=== PATIENT | male | born 1950 | race Caucasian/White ===

== ENCOUNTER 2018-04-11 06:14 | Day surgery (SDC) | payer OTHER, MEDICARE ==
--- NOTE | 2018-04-08 15:06 | RAD REPORT ---
EXAM DESCRIPTION: RAD - Chest Pa And Lat (2 Views) - 04/08/2018 3:00 pm CLINICAL HISTORY: preop Chest pain. COMPARISON: No comparisons FINDINGS: The lungs are emphysematous but clear. The heart is upper limit of normal in size. No disp laced fractures. IMPRESSION: No acute or concerning finding suspected.
[2018-04-08 15:39] LABS: Absolute Monocytes 0.6 K/uL (0.1-1.3); Absolute Neutrophil 4.3 K/uL (1.8-8.0); Basophils % 0.6 % (0-1.3); Eosinophils % 3.7 % (0-4.4); Hematocrit 40.8 % (39.6-49.0); Lymphocytes % 27.2 % (15.3-44.8); MCH 31.8 pg (27.0-35.0); MCV 92.4 fL (80-100); MPV 8.7 fL (7.6-11.3); Monocytes % 8.1 % (3.3-12.3); RBC Red Blood Cell Count 4.42 M/uL (4.33-5.43)
[2018-04-08 15:42] LABS: Protime INR 0.87
[2018-04-08 15:48] LABS: Potassium 4.3 mmol/L (3.5-5.1)
--- OUTSIDE RECORDS SUMMARY | 2018-04-11 06:16 | XMS REPORT ---
:1950 Author Organization [employer] Care Team Providers Name Role Phone Tariq Mooney Provider Role Unavailable Allergies No Known Allergies Problems No Known Problems Medications No Known Medications Results No Known Results Summary Purpose eClinicalWorks Submission
--- OUTSIDE RECORDS SUMMARY | 2018-04-11 06:16 | XMS REPORT ---
:1950 Author Organization [employer] Care Team Providers Name Role Phone Vinicio Tariq Provider Role Unavailable Allergies No Known Allergies Problems No Known Problems Medications Medication Code System Code Instructions Start End Date Status Dosage Date Machelle [facility] 44706068531 4 MG Orally Every Apr 08, Active 1 tablet 6-8 hrs 2018 as needed Results No Known Results Summary Purpose eClinicalWorks Submission
--- OUTSIDE RECORDS SUMMARY | 2018-04-11 06:16 | XMS REPORT ---
:1950 Author Organization [employer] Care Team Providers Name Role Phone Tariq Mooney Provider Role Unavailable Allergies, Adverse Reactions, Alerts Substance Reaction Event Type N.K.D.A. Info Not Available Non Drug Allergy Problems Problem Type Condition Code Onset Dates Condition Status Assessment Pain, joint, knee, left M25.562 Active Assessment Acute medial meniscal injury of S83.8X2A Active left knee, initial encounter Medications Medication Code Code Instructions Start End Status Dosage System Date Date Metformin HCl [facility] 23692710040 1000 MG Orally Active 1 tablet Once a day with a meal [facility] 59009842242 81 MG Orally Mar 04, Active 1 tablet Once a day 2017 atorvastatin [facility] 35726843531 20mg Active 1 tablet by mouth at bedtime Zetia [facility] 93381658944 10 MG Orally Active 1 tablet Once a day Prilosec [facility] 85282081674 20 MG Orally Active 1 capsule Once a day Results Name Result Date Reference Range Unit Abnormality Flag MRI KNEE WO CONTRAST Summary Purpose eClinicalWorks Submission
--- OUTSIDE RECORDS SUMMARY | 2018-04-11 06:16 | XMS REPORT ---
:1950 Author Organization [employer] Care Team Providers Name Role Phone Tariq Mooney Provider Role Unavailable Allergies No Known Allergies Problems No Known Problems Medications Medication Code System Code Instructions Start End Date Status Dosage Date [facility] 23783712745 7.5-325 MG Orally Apr 08, Apr 18, Active 1 tablet every 6 hrs 2017 2017 as needed Results No Known Results Summary Purpose eClinicalWorks Submission
--- OUTSIDE RECORDS SUMMARY | 2018-04-11 06:16 | XMS REPORT ---
[...] Start End Status Dosage System Date Date atorvastatin [facility] 34351245219 20mg Active 1 tablet by mouth at bedtime [facility] 71748234104 81 MG Orally Mar 04, Active 1 tablet Once a day 2017 Prilosec [facility] 61826017846 20 MG Orally Active 1 capsule Once a day Metformin HCl [facility] 58681337324 1000 MG Orally Active 1 tablet Once a day with a meal Zetia [facility] 49531938093 10 MG Orally Active 1 tablet Once a day Results No Known Results Summary Purpose eClinicalWorks Submission
[2018-04-11] MEDS ORDERED: CEFAZOLIN/SWI 1gm 1 GM/10 ML SYR ONE (06:30)
[2018-04-11] MEDS ORDERED: NA CHLORIDE 0.9% 1,000 ML ONE ×2 (06:30→08:40)
[2018-04-11] MEDS ORDERED: BUPIVACAINE 0.25% PF 10 ML VIAL ONE (07:02)
[2018-04-11] MEDS ORDERED: PROPOFOL 200 MG/20 ML VIAL IV ONE (07:16)
[2018-04-11] MEDS ORDERED: LIDOCAINE 2% MPF 5 ML VIAL ONE (07:17)
[2018-04-11] MEDS ORDERED: MIDAZOLAM HCL 2 MG/2 ML INJ ONE (07:17)
[2018-04-11] MEDS ORDERED: FENTANYL CITR 100 MCG/2 ML ONE (07:17)
[2018-04-11] MEDS ORDERED: DEXAMETHASONE 10 MG/ML VIAL ONE (07:39)
[2018-04-11] MEDS ORDERED: KETOROLAC 30 MG/ML INJ ONE (07:39)
[2018-04-11] MEDS ORDERED: ONDANSETRON HCL 40 MG/20 ML VIAL ONE (07:39)
--- NOTE | 2018-04-11 08:32 | P.BOP ---
Preoperative diagnosis: left knee medial meniscus tear Postoperative diagnosis: same Primary procedure: left knee arthroscopic partial medial meniscectomy Market Research Specialist: NONE,NONE Estimated blood loss: <5cc Specimen: none Findings: see dictation Anesthesia: General Implants: none Fluids & blood products: per anesthesia; TT: 26 mins @ 250 mmHg Transferred to: Recovery Room Condition: Good
[2018-04-11] MEDS ORDERED: HYDROCODONE/APAP 7.5/325 MG TAB ONE (09:32)
--- NOTE | 2018-04-11 23:34 | OP ---
Date of Procedure: 04/11/2018 Surgeon: Tariq Mooney MD Preoperative Diagnosis: Left knee medial meniscus tear. Postoperative Diagnosis: Left knee medial meniscus tear. Procedure Performed: Left knee arthroscopic partial medial meniscectomy. Anesthesia: General LMA. Fluids: Per Anesthesia record. Estimated Blood Loss: Less than 5 cc. Implants: None. Complications: None. Tourniquet Time: 26 minutes at 250 mmHg. Indication For Procedure: Kolby is a 68-year-old male, who presented to my clinic with signs and symp toms consistent with a left knee medial meniscus tear. I discussed with the patient at length risks and benefits associated with operative and nonoperative treatment and he expressed understanding and elected to proceed with operative treatment. Description Of Procedure: After informed consent was obtained, the patient was identified in the pre operative holding area. The left lower extremity was marked. The patient was then brought back to [facility] operating room, transferred to the operating table in a supine fashion, and placed under general L MA anesthesia. The left lower extremity was examined. The patient had full range of motion. No ins tability noted of his left knee. The left lower extremity was then prepped and draped in usual steri le fashion. A time-out was initiated. The correct patient and procedure were confirmed and identifi ed. The patient did receive his preoperative prophylactic antibiotics. A standard anterior medial a nd anterior lateral portals were created after the left lower extremity was exsanguinated using an Es march and the tourniquet was inflated to 250 mmHg. Again, standard anterior medial and anterolateral portals were created. Arthroscope was brought into the anterolateral portal and a diagnostic arthro scopy was performed. The patient was noted to have pristine cartilage of the undersurface of the pat janay as well as trochlear groove. There were no loose bodies found within the medial and lateral gut ters. The arthroscope was then brought into the medial compartment. The patient was noted to have n o significant chondromalacia noted on the medial femoral condyle and medial tibial plateau. He did h ave a complex tear of the medial meniscus with a loose fragment. A partial medial meniscectomy was p erformed using the arthroscopic shaver and meniscal biters to smooth meniscal borders. The arthrosco pe was then brought into the intercondylar notch. The patient was noted to have an intact ACL and PC L. The arthroscope was then brought into the lateral compartment, where the patient was noted to hav e an intact lateral meniscus, which was stable to probing and no significant chondromalacia changes o f the lateral femoral condyle and lateral tibial plateau. The arthroscopic instruments were then rem luiz without complication. The portals were then approximated using a 3-0 Monocryl. Sterile dressin gs were applied. The patient was awakened and transferred to PACU in stable condition. Postoperative Plan: The patient will follow up in clinic next week for wound check. Physical Therap y will be consulted in [facility] and the patient will follow with a post partial meniscectomy protocol. LD/MELIDA Voice ID: [id number] Report ID: [id number]
== END 2018-04-11 10:10 | disposition home or self-care (01) ==
LOC: OR 06:14
PROVIDERS: ATTEND Orthopaedic Surgery Sports Medicine
PROC: 0SBD4ZZ Excision of Left Knee Joint, Percutaneous Endoscopic Approach (ICD-10-PCS; principal; 2018-04-11 07:30)
DX: S83.242A Other tear of medial meniscus, current injury, left knee, initial encounter (principal); E11.9 Type 2 diabetes mellitus without complications; Z88.6 Allergy status to analgesic agent
CPT/HCPCS: 29881; 36415; 71046; 80048; 82962 ×2; 85025; 85610; 85730; J0690; J1100; J2250; J2405; J3010; J7030 ×2